=== PATIENT | male | born 1980 | race Caucasian/White ===

== ENCOUNTER 2020-07-24 07:49 | Day surgery (SDC) | payer MEDICAID ==
[~2020-07-24 07:49] MED LIST: Albuterol 0.083% 2.5 MG/3 ML Neb Soln NEB SCH; Lactated Ringers 1,000 ML IV SCH; Lidocaine 1%/Sod Bicarbonate in NS 8.4% 1 ML Syringe IDERM PRN; Sodium Chloride 0.9% 10 ML Syringe FLUSH PRN
--- NOTE | 2020-07-24 08:16 | PCM.PREANE ---
Preanesthetic Assessment - Procedure Proposed Procedure: COLONOSCOPY - Anesthesia/Transfusion/Family Hx Anesthesia History: Prior Anesthesia Without Reaction Family History of Anesthesia Reaction: No Transfusion History: No Prior Transfusion(s) - Review of Systems General: No Symptoms Pulmonary: No Symptoms Cardiovascular: No Symptoms Gastrointestinal: No Symptoms Neurological: No Symptoms Other: Reports: Diabetes (THIS AM 88) - Physical Assessment Vital Signs: Last Vital Signs Temp Pulse Resp BP Pulse Ox 98 07/24/20 08:09 Height: 1.7 m Weight: 142.428 kg ASA Class: 3 Mental Status: Alert & Oriented x3 Airway Class: Mallampati = 2 Dentition: Reports: Kelliher(s) Thyro-Mental Finger Breadths: 1 Mouth Opening Finger Breadths: 2 ROM/Head Extension: Full Lungs: Clear to Auscultation, Normal Respiratory Effort Cardiovascular: Regular Rate, Regular Rhythm - Lab Values: Laboratory Last Values POC Glucose 88 mg/dL (70-105) 07/24/20 08:04 - Allergies Allergies/Adverse Reactions: Allergies Allergy/AdvReac Type Severity Reaction Status Date / Time tramadol Allergy Itching Verified 07/23/20 13:19 - Blood Blood Available: No Product(s) Available: None - Anesthesia Plan Pre-Op Medication Ordered: None - Acknowledgements Anesthesia Type Planned: MAC Pt an Appropriate Candidate for the Planned Anesthesia: Yes Alternatives and Risks of Anesthesia Discussed w Pt/Guardian: Yes Pt/Guardian Understands and Agrees with Anesthesia Plan: Yes PreAnesthesia Questionnaire Respiratory History: Reports: Sleep Apnea Gastrointestinal History: Reports: Other (See Below) Other Gastrointestinal History: ulcerative colitis - Past Surgical History HEENT Surgical History: Reports: Adenoidectomy Other HEENT Surgeries/Procedures: nasal sinujs procedure, turbinate reduction GI Surgical History: Reports: Appendectomy, Colonoscopy, Leif Fundoplication - SUBSTANCE USE Tobacco Use Status *Q: Never Tobacco User Tobacco Use Within Last Twelve Months: No Second Hand Smoke Exposure: No Days Per Week of Alcohol Use: 0 Number of Drinks Per Day: 0 Total Drinks Per Week: 0 Recreational Drug Use History: No - HOME MEDS Home Medications: Home Meds DULoxetine [Cymbalta] 30 mg PO DAILY 07/23/20 [History] Lactobacillus 3/Fos/Pantethine [Probiotic & Acidophilus] 1 tab PO DAILY 07/23/20 [History] Losartan [Cozaar] 50 mg PO DAILY 07/23/20 [History] metFORMIN HCl [Metformin ER Osmotic] 1,000 mg PO DAILY 07/23/20 [History] - CURRENT (IN HOUSE) MEDS Current Meds: Current Medications Albuterol (Proventil Neb Soln) 2.5 mg NEB ONETIME ZULEYMA Stop: 07/24/20 16:00 Last Admin: 07/24/20 08:08 Dose: 2.5 mg Documented by: Lactated Ringer's (Ringers, Lactated) 1,000 mls @ 125 mls/hr IV ASDIRECTED ZULEYMA Stop: 07/24/20 23:00 Lidocaine/Sodium Bicarbonate (Buffered Lidocaine 1% In Ns 8.4%) 0.25 ml IDERM ONETIME PRN PRN Reason: Prior to IV Start Stop: 07/24/20 23:00 Sodium Chloride (Saline Flush) 10 ml FLUSH ASDIRECTED PRN PRN Reason: Keep Vein Open Stop: 07/24/20 23:00
[2020-07-24] MEDS ORDERED: Lidocaine 1% 4 ML ONE ×2 (08:19→09:18)
[2020-07-24] MEDS ORDERED: Propofol 200 MG/20 ML SDV ONE ×4 (08:20→09:19)
[2020-07-24] MEDS ORDERED: Midazolam 1 MG/ML 2 ML SDV ONE (08:21)
[2020-07-24] MEDS ORDERED: Ketorolac 15 MG/ML SDV ONE (09:23)
--- NOTE | 2020-07-24 09:27 | PCM.OPNOTE ---
- General Post-Op/Procedure Note Date of Surgery/Procedure: 07/24/20 Operative Procedure(s): colonoscopy with hemorrhoid banding Findings: 1. Transverse colon polyp 2. Internal hemorrhoids Pre Op Diagnosis: Hematochezia Post-Op Diagnosis: same Anesthesia Technique: JULITA Primary Surgeon: Moni Erickson Anesthesia Provider: Samantha Murrieta Pathology: Transverse colon polyp Fluid Replacement, Intraop: 650 Output, Urine Amount: 0 EBL in mLs: 0 Complications: none apparent Condition: Good
--- NOTE | 2020-07-24 09:34 | PCM.PRNOTE ---
- Free Text/Narrative Note: Operative Report Date of Surgery/Procedure: July 24, 2020 Operative Procedure: Colonoscopy with hemorrhoid banding Pre Op Diagnosis: hematochezia Post-Op Diagnosis: same Surgeon: Moni Erickson Anesthesia Technique: MAC Anesthesia Provider: Samantha Murrieta CRNA IV Fluid Replacement, Intraop: 650cc Output, Urine Amount: 0cc EBL : 0cc Findings: 1. Transverse colon polyp 2. Internal hemorrhoid Specimens: Transverse colon polyp Indication: The patient is a 40 year-old gentleman who presented to the outpatient clinic. The patient has a history of hematochezia. We discussed the procedure of a colonoscopy including the polypectomy and biopsy with possible hemorrhoid banding. Risks of bleeding and perforation were discussed, the patient understood and wished to proceed. Written and consent was obtained Description of the procedure: The patient was brought to the endoscopy suite and placed in the left lateral decubitus position. Appropriate monitors were applied. The patient was given MAC anesthesia. An anorectal examination was performed, revealing no external abnormalities. The scope was placed into the rectum and advanced to cecum with minimal difficulty. The patients cecum was entered, and the ileocecal valve and appendiceal orifice were identified and normal. At this point, the scope was withdrawn, paying careful attention to the mucosa. The patient had good bowel prep, allowing for visualization of 90-95% of the mucosa after washing and suctioning. A 3mm flat transverse colon polyp was noted and removed with a jumbo cold biposy forceps. In the rectum, the scope was retroflexed and no abnormalities were noted, except for some hemorrhoidal tissue. The scope was jeff niru back in the lumen and the excess air was aspirated. The hemorrhoid banding device was then opened and the anoscope inserted into the anal orifice. The patient did have prominent hemorrhoid cushions. 4 hemorrhoid bands were placed on the hemorrhoid tissue. The banding device and endoscope were then removed. The patient tolerated the procedure well. Complications: none apparent Condition: Good, transported to PACU in stable condition Moni Erickson MD General Surgery
--- NOTE | 2020-07-24 09:39 | PCM48HPAN ---
Post Anesthesia Note - EVALUATION WITHIN 48HRS OF ANESTHETIC Vital Signs in Normal Range: Yes Patient Participated in Evaluation: Yes Respiratory Function Stable: Yes Airway Patent: Yes Cardiovascular Function Stable: Yes Hydration Status Stable: Yes Pain Control Satisfactory: Yes Nausea and Vomiting Control Satisfactory: Yes Mental Status Recovered: Yes Vital Signs: Last Vital Signs Temp 36.1 C 07/24/20 08:00 Pulse 84 07/24/20 08:00 Resp 18 07/24/20 08:00 BP 131/76 07/24/20 08:00 Pulse Ox 98 07/24/20 08:09
[2020-07-24] MEDS ORDERED: Simethicone Drops 40 MG/0.6 ML 30 ML Bottle ONE (09:40)
== END 2020-07-24 10:01 | disposition home or self-care (01) ==
LOC: JD.SDS 07:49
PROVIDERS: ATTEND Surgery
DX: D12.3 Benign neoplasm of transverse colon (principal); K64.8 Other hemorrhoids; E11.9 Type 2 diabetes mellitus without complications; G47.30 Sleep apnea, unspecified; Z79.84 Long term (current) use of oral hypoglycemic drugs; Z79.899 Other long term (current) drug therapy; Z98.890 Other specified postprocedural states; Z88.8 Allergy status to other drugs, medicaments and biological substances
CPT/HCPCS: 45380; 46221; 82962; 94640; A9270; J1885; J2001; J2250; J2704; J7120; 00902

== ENCOUNTER 2020-12-11 07:13 | Day surgery (SDC) | payer MEDICAID ==
--- NOTE | 2020-12-09 11:20 | PCM.PREANE ---
Preanesthetic Assessment - Procedure Proposed Procedure: Left Ilioinguinal neurectomy - Anesthesia/Transfusion/Family Hx Anesthesia History: Prior Anesthesia Without Reaction Family History of Anesthesia Reaction: No Transfusion History: No Prior Transfusion(s) Intubation History: Unknown - Review of Systems General: No Symptoms, Other (Morbid Obesity) Pulmonary: No Symptoms (HELEN-CPAP:) Cardiovascular: No Symptoms (Elevated B/P:) Gastrointestinal: No Symptoms (History of IBS: history of fundiplication), Constipation, Diarrhea, Nausea Neurological: No Symptoms, Syncope (History of syncopal episodes: one year ago.) Other: Reports: Easy Bruising, Diabetes (am blood wdppl=[id number] @ 0731) - Physical Assessment NPO Status Date: 12/10/20 NPO Status Time: 20:45 Vital Signs: HR: 74 Sat: 98% Temp: 97.8 Resp: 22 B/P: 165/79 Height: 1.7 m Weight: 141 kg ASA Class: 3 Mental Status: Alert & Oriented x3 Airway Class: Mallampati = 2 Dentition: Reports: Normal Dentition, Caries Thyro-Mental Finger Breadths: 3 Mouth Opening Finger Breadths: 3 ROM/Head Extension: Full Lungs: Clear to Auscultation, Normal Respiratory Effort Cardiovascular: Regular Rate, Regular Rhythm, No Murmurs - Lab Values: All labs reviewed and noted and within acceptable ranges to proceed with scheduled procedure. - Imaging/EKG Impressions: EKG: SR rate=75 - Allergies Allergies/Adverse Reactions: Allergies Allergy/AdvReac Type Severity Reaction Status Date / Time tramadol Allergy Itching Verified 12/10/20 12:44 - Anesthesia Plan Pre-Op Medication Ordered: Other (oral tylenol, gabapentin @ ) - Acknowledgements Anesthesia Type Planned: General Anesthesia, MAC Pt an Appropriate Candidate for the Planned Anesthesia: Yes Alternatives and Risks of Anesthesia Discussed w Pt/Guardian: Yes Pt/Guardian Understands and Agrees with Anesthesia Plan: Yes PreAnesthesia Questionnaire Respiratory History: Reports: Sleep Apnea Gastrointestinal History: Reports: Other (See Below) Other Gastrointestinal History: ulcerative colitis - Past Surgical History HEENT Surgical History: Reports: Adenoidectomy Other HEENT Surgeries/Procedures: nasal sinujs procedure, turbinate reduction GI Surgical History: Reports: Appendectomy, Colonoscopy, Leif Fundoplication - HOME MEDS Home Medications: Home Meds DULoxetine [Cymbalta] 30 mg PO TID 07/23/20 [History] Lactobacillus 3/Fos/Pantethine [Probiotic & Acidophilus] 1 tab PO DAILY 07/23/20 [History] Losartan [Cozaar] 50 mg PO DAILY 07/23/20 [History] Fluconazole [Diflucan] 100 mg PO DAILY 12/10/20 [History] Liraglutide [Victoza 2-Abdiaziz] 1.2 mg SQ DAILY 12/10/20 [History] metFORMIN [Glucophage] 1,000 mg PO DAILY 12/10/20 [History] - CURRENT (IN HOUSE) MEDS Current Meds: Current Medications Albuterol (Albuterol 0.083% 2.5 Mg/3 Ml Neb Soln) 2.5 mg NEB ONETIME PRN PRN Reason: bronchodilation Stop: 12/11/20 23:00 Lactated Ringer's (Ringers, Lactated) 1,000 mls @ 125 mls/hr IV ASDIRECTED ZULEYMA Stop: 12/11/20 23:00 Lidocaine/Sodium Bicarbonate (Lidocaine 1%/Sod Bicarbonate In Ns 8.4% 1 Ml Syringe) 0.25 ml IDERM ONETIME PRN PRN Reason: Prior to IV Start Stop: 12/11/20 18:00 Sodium Chloride (Sodium Chloride 0.9% 10 Ml Syringe) 10 ml FLUSH ASDIRECTED PRN PRN Reason: Keep Vein Open Stop: 12/11/20 18:00
[~2020-12-11 07:13] MED LIST changes: +Acetaminophen 325 MG Tab PO ONE; +Albuterol 0.083% 2.5 MG/3 ML Neb Soln NEB PRN; -Albuterol 0.083% 2.5 MG/3 ML Neb Soln NEB SCH; +Gabapentin 300 MG Cap PO ONE
[2020-12-11] MEDS ORDERED: Lidocaine 1% with EPINEPHrine 1:100,000 10 ML MDV ONE (07:28)
[2020-12-11] MEDS ORDERED: Bupivacaine 0.5%/EPINEPHrine 1:200,000 50 ML MDV ONE (07:28)
[2020-12-11] MEDS ORDERED: Citric Acid/Sodium Citrate Solution 30 ML Cup ONE (07:42)
[2020-12-11] MEDS ORDERED: fentaNYL 100 MCG/2 ML SDV ONE ×2 (07:42→08:46)
[2020-12-11] MEDS ORDERED: Lactated Ringers 1,000 ML ONE (07:42)
[2020-12-11] MEDS ORDERED: Lidocaine 1% 4 ML ONE (07:42)
[2020-12-11] MEDS ORDERED: Metoclopramide 10 MG/2 ML SDV ONE (07:42)
[2020-12-11] MEDS ORDERED: Ondansetron 4 MG/2 ML SDV ONE (07:42)
[2020-12-11] MEDS ORDERED: Propofol 200 MG/20 ML SDV ONE ×2 (07:42→09:13)
[2020-12-11] MEDS ORDERED: ceFAZolin 1 GM Vial ONE (07:42)
[2020-12-11] MEDS ORDERED: Ketamine 500 mg/10 ML MDV ONE (07:43)
[2020-12-11] MEDS ORDERED: Midazolam 1 MG/ML 2 ML SDV ONE (07:43)
[2020-12-11] MEDS ORDERED: Pantoprazole 40 MG in Sodium Chloride 0.9% 100 ML IV ONE (07:52)
[2020-12-11] MEDS ORDERED: Pantoprazole 40 MG Vial IV ONE (08:00)
[2020-12-11] MEDS ORDERED: Ketorolac 30 MG/ML SDV ONE (08:39)
[2020-12-11] MEDS ORDERED: HYDROmorphone 0.5 MG/0.5 ML Syringe ONE (08:41)
[2020-12-11] MEDS ORDERED: diphenhydrAMINE 50 MG/ML SDV IVPUSH PRN (08:50)
[2020-12-11] MEDS ORDERED: HYDROmorphone 0.5 MG/0.5 ML Syringe IVPUSH PRN (08:50)
[2020-12-11] MEDS ORDERED: Albuterol 0.083% 2.5 MG/3 ML Neb Soln NEB PRN (08:50)
[2020-12-11] MEDS ORDERED: fentaNYL 100 MCG/2 ML SDV IVPUSH PRN (08:50)
[2020-12-11] MEDS ORDERED: ePHEDrine 50 MG/ML SDV IVPUSH PRN (08:50)
[2020-12-11] MEDS ORDERED: Ondansetron 4 MG/2 ML SDV IVPUSH PRN (08:50)
--- NOTE | 2020-12-11 10:05 | PCM48HPAN ---
Post Anesthesia Note - EVALUATION WITHIN 48HRS OF ANESTHETIC Vital Signs in Normal Range: Yes Patient Participated in Evaluation: Yes Respiratory Function Stable: Yes Airway Patent: Yes Cardiovascular Function Stable: Yes Hydration Status Stable: Yes Pain Control Satisfactory: Yes Nausea and Vomiting Control Satisfactory: Yes Mental Status Recovered: Yes Vital Signs: Last Vital Signs Temp 36.6 C 12/11/20 07:20 Pulse 74 12/11/20 07:20 Resp 22 H 12/11/20 07:20 BP 174/78 H 12/11/20 07:20 Pulse Ox 93 L 12/11/20 08:04
--- NOTE | 2020-12-11 10:17 | PCM.OPNOTE ---
- General Post-Op/Procedure Note Date of Surgery/Procedure: 12/11/20 Operative Procedure(s): open left ilioinguinal neurectomy Findings: normal anatomy Pre Op Diagnosis: chronic left inguinal pain Post-Op Diagnosis: same Anesthesia Technique: Local, MAC Primary Surgeon: Moni Erickson Anesthesia Provider: Sheri Rivero Pathology: left ilioinguinal nerve Fluid Replacement, Intraop: 900 EBL in mLs: 10 Complications: none apparent Condition: Good
--- NOTE | 2020-12-11 10:20 | PCM.PRNOTE ---
- Free Text/Narrative Note: Date of Surgery: 12/11/20 Operative Procedure(s): open left ilioinguinal neurectomy Findings: normal anatomy Pre Op Diagnosis: chronic left inguinal pain Post-Op Diagnosis: same Anesthesia Technique: Local, MAC Primary Surgeon: Moni rEickson Anesthesia Provider: Sheri Rivero Pathology: left ilioinguinal nerve Fluid Replacement, Intraop: 900 EBL in mLs: 10 Indication: The patient is a 40 y/o gentleman who is well known to the clinic and has a history of chronic left inguinal pain after a remote surgery for varicocele. He has tried medical options for pain control, but still is having chronic pain. We discussed an open ilioinguinal neurectomy for treatment of his pain. We discussed risks of bleeding, infection, and possible inefficacy of the procedure. His written consent was obtained. Description of the procedure: The patient was taken back to the operating room and placed in supine position on the operating table. He had successful induction of MAC anesthesia with the additional use of his CPAP machine. Preoperative antibiotics were administered according to SCIP protocol, Ancef 3 g IV. He was then prepped and draped in standard surgical fashion. A timeout was performed. A left-sided ilioinguinal nerve block was attempted using 10 cc of mixed 1% lidocaine with epinephrine and 0.5% bupivacaine with epinephrine. We began by making an incision in the left inguinal crease. This was carried down through Lobito's fascia to the level of the external oblique upon neurosis which was identified with its parallel running muscle fibers. This was incised sharply and opened along the muscle fibers to expose the inguinal canal. We then proceeded to dissect the contents of the inguinal canal and the ilioinguinal nerve was identified. This was directly anesthetized for patient comfort. The ends were then ligated and the specimen of approximately 4 cm of nerve were removed and sent to pathology. We then inspected for the iliohypogastric nerve. This was not readily apparent to the patient's body habitus. We then closed the external oblique aponeurosis using a running 2-0 Vicryl suture. The Lobito's fascia was then reapproximated using a 3-0 Vicryl suture. The skin was closed in 2 layers using underlying 3-0 Vicryl suture and an overlying subcuticular 4-0 Monocryl suture. Dermabond was used to cover the incision. The patient tolerated the procedure well. All sponge and needle counts were correct. He was awakened from anesthesia and transported to the recovery area in stable condition Complications: none apparent Condition: Good Moni Erickson MD General Surgery
--- NOTE | 2020-12-11 19:29 | PCM.SN.2 ---
#1 Interpretation EKG Date: 12/11/20 Rhythm: NSR [place]: LAD-Left [place] Deviation (Developing) P-Wave: Present ST-T: Other (Minimal nondiagnostic changes) QT: Normal Comparison: NA - No Prior EKG EKG Interpretation Comments: Abnormal
== END 2020-12-11 11:06 | disposition home or self-care (01) ==
LOC: JD.SDS 07:13
PROVIDERS: ATTEND Surgery
DX: G89.29 Other chronic pain (principal); R10.2 Pelvic and perineal pain; E11.9 Type 2 diabetes mellitus without complications; G47.30 Sleep apnea, unspecified; Z98.890 Other specified postprocedural states; Z88.8 Allergy status to other drugs, medicaments and biological substances
CPT/HCPCS: 64999; 82947; 93005; 94640; A9270; C9113; J0690; J1170; J1885; J2250; J2405; J2704; J2765; J3010; J3490; J7120; 01320

== ENCOUNTER 2023-04-07 12:25 | Day surgery (SDC) | payer BC, MEDICAID ==
[2023-04-07] MEDS ORDERED: Lactated Ringers 1,000 ML IV SCH (12:30)
[2023-04-07] MEDS ORDERED: Propofol 200 MG/20 ML SDV ONE ×2 (13:43→13:45)
[2023-04-07] MEDS ORDERED: Lidocaine 1% 2 ML ONE (13:47)
[2023-04-07] MEDS ORDERED: Lidocaine 2% 20 ML MDV ONE (13:47)
[2023-04-07] MEDS ORDERED: Ketamine 500 mg/10 ML MDV ONE (13:48)
[2023-04-07] MEDS ORDERED: Lidocaine 1% PF 2 ML SDV ONE (13:48)
[2023-04-07] MEDS ORDERED: Sodium Chloride 0.9% 10 ML Syringe FLUSH SCH (21:00)
== END 2023-04-07 16:56 | disposition home or self-care (01) ==
LOC: JD.SDS 12:25
PROVIDERS: ATTEND Surgery
DX: Z12.11 Encounter for screening for malignant neoplasm of colon (principal); L90.5 Scar conditions and fibrosis of skin; G47.33 Obstructive sleep apnea (adult) (pediatric); K58.9 Irritable bowel syndrome, unspecified; E11.65 Type 2 diabetes mellitus with hyperglycemia; E78.1 Pure hyperglyceridemia; N52.9 Male erectile dysfunction, unspecified; L98.9 Disorder of the skin and subcutaneous tissue, unspecified; I10 Essential (primary) hypertension; Z90.89 Acquired absence of other organs; Z90.49 Acquired absence of other specified parts of digestive tract; Z98.890 Other specified postprocedural states; Z79.4 Long term (current) use of insulin; Z79.899 Other long term (current) drug therapy; Z86.010 Personal history of colon polyps; Z87.19 Personal history of other diseases of the digestive system; Z88.5 Allergy status to narcotic agent
CPT/HCPCS: 11104; 45378; J2704; J3490; J7120; 00812; J2001